=== PATIENT | female | born 1990 | race African-American/Black ===

== ENCOUNTER 2016-12-24 01:20 | Emergency (ER) | payer OTHER, MEDICAID ==
[~2016-12-24] VITALS: Ht 172.7 cm; Wt 140.6 kg
[~2016-12-24 01:20] MED LIST: AUGMENTIN PO
== END 2016-12-24 06:52 | disposition home or self-care (01) ==
LOC: CED 01:20
DX: J02.0 Streptococcal pharyngitis (principal); I10 Essential (primary) hypertension
CPT/HCPCS: 87880; 96360; 96372; 99283; J0561